=== PATIENT | female | born 1940 | race Caucasian/White ===

== ENCOUNTER → 2016-09-27 | Outpatient (CLI) | payer OTHER ==
[~2016-09-27] MED LIST: ALBUTEROL MDI; ASPI-496 PO; ATOR10TA PO; DIAZ5TAB PO; HYDR25TA6 PO
== END | disposition home or self-care (01) ==
LOC: WOUND 12:39
PROVIDERS: ATTEND Surgery
DX: T81.31XD Disruption of external operation (surgical) wound, not elsewhere classified, subsequent encounter (principal); J45.909 Unspecified asthma, uncomplicated; I10 Essential (primary) hypertension; Z90.710 Acquired absence of both cervix and uterus; Y83.8 Other surgical procedures as the cause of abnormal reaction of the patient, or of later complication, without mention of misadventure at the time of the procedure
CPT/HCPCS: G0463; WOU0463

== ENCOUNTER → 2016-10-06 | Outpatient (CLI) | payer OTHER ==
[~2016-10-06] MED LIST changes: +OMNIPAQUE 350 MG/ML, 100ML BOTTLE ONE
== END | disposition home or self-care (01) ==
LOC: CFH 10:54
PROVIDERS: ATTEND Surgery
DX: K80.20 Calculus of gallbladder without cholecystitis without obstruction (principal); K76.0 Fatty (change of) liver, not elsewhere classified; I70.0 Atherosclerosis of aorta; K57.30 Diverticulosis of large intestine without perforation or abscess without bleeding; J98.4 Other disorders of lung; Z90.710 Acquired absence of both cervix and uterus
CPT/HCPCS: 74177; 82565; Q9967

== ENCOUNTER → 2016-10-11 | Outpatient (CLI) | payer OTHER ==
[~2016-10-11] MED LIST changes: -OMNIPAQUE 350 MG/ML, 100ML BOTTLE ONE
== END | disposition home or self-care (01) ==
LOC: WOUND 09:45
PROVIDERS: ATTEND Physician Assistant
DX: T81.31XD Disruption of external operation (surgical) wound, not elsewhere classified, subsequent encounter (principal); I10 Essential (primary) hypertension; J45.909 Unspecified asthma, uncomplicated; Z90.710 Acquired absence of both cervix and uterus; Y83.8 Other surgical procedures as the cause of abnormal reaction of the patient, or of later complication, without mention of misadventure at the time of the procedure
CPT/HCPCS: 17250

== ENCOUNTER → 2016-10-20 | Outpatient (CLI) | payer OTHER | END | disposition home or self-care (01) | LOC: WOUND 10:00 | PROVIDERS: ATTEND Internal Medicine | DX: T81.31XD Disruption of external operation (surgical) wound, not elsewhere classified, subsequent encounter (principal); I10 Essential (primary) hypertension; J45.909 Unspecified asthma, uncomplicated; Z90.710 Acquired absence of both cervix and uterus; Y83.8 Other surgical procedures as the cause of abnormal reaction of the patient, or of later complication, without mention of misadventure at the time of the procedure | CPT/HCPCS: 97597 ==

== ENCOUNTER → 2016-11-01 | Outpatient (CLI) | payer OTHER | END | disposition home or self-care (01) | LOC: WOUND 13:02 | PROVIDERS: ATTEND Surgery | DX: T81.31XD Disruption of external operation (surgical) wound, not elsewhere classified, subsequent encounter (principal); I10 Essential (primary) hypertension; J45.909 Unspecified asthma, uncomplicated; Z90.710 Acquired absence of both cervix and uterus; Y83.8 Other surgical procedures as the cause of abnormal reaction of the patient, or of later complication, without mention of misadventure at the time of the procedure | CPT/HCPCS: G0463; WOU0463 ==

== ENCOUNTER → 2016-11-15 | Outpatient (CLI) | payer OTHER | END | disposition home or self-care (01) | LOC: WOUND 11:02 | PROVIDERS: ATTEND Physician Assistant | DX: T81.31XD Disruption of external operation (surgical) wound, not elsewhere classified, subsequent encounter (principal); I10 Essential (primary) hypertension; J45.909 Unspecified asthma, uncomplicated; Z90.710 Acquired absence of both cervix and uterus; Z85.828 Personal history of other malignant neoplasm of skin; Y83.8 Other surgical procedures as the cause of abnormal reaction of the patient, or of later complication, without mention of misadventure at the time of the procedure | CPT/HCPCS: G0463; WOU0463 ==

== ENCOUNTER → 2016-11-30 | Outpatient (CLI) | payer OTHER | END | disposition home or self-care (01) | LOC: WOUND 10:06 | PROVIDERS: ATTEND Internal Medicine | DX: T81.31XD Disruption of external operation (surgical) wound, not elsewhere classified, subsequent encounter (principal); I10 Essential (primary) hypertension; J45.909 Unspecified asthma, uncomplicated; Z85.828 Personal history of other malignant neoplasm of skin; Z90.710 Acquired absence of both cervix and uterus; Y83.8 Other surgical procedures as the cause of abnormal reaction of the patient, or of later complication, without mention of misadventure at the time of the procedure | CPT/HCPCS: G0463; WOU0463 ==

== ENCOUNTER → 2017-09-14 | Outpatient (CLI) | payer MEDICARE | END | disposition home or self-care (01) | LOC: CFH 13:14 | PROVIDERS: ATTEND Internal Medicine Geriatric Medicine | DX: K80.20 Calculus of gallbladder without cholecystitis without obstruction (principal); K83.8 Other specified diseases of biliary tract | CPT/HCPCS: 74181 ==

== ENCOUNTER 2017-10-11 10:03 | Day surgery (SDC) | payer MEDICARE ==
[~2017-10-11] VITALS: Ht 162.6 cm; Wt 80.4 kg
[2017-10-11] MEDS ORDERED: LACTATED RINGERS 1,000 ML IV SCH (11:16)
[2017-10-11] MEDS ORDERED: ROCURONIUM 10MG/ML,5ML ONE (11:17)
[2017-10-11] MEDS ORDERED: FENTANYL PF 100 MCG/2ML ONE (11:17)
[2017-10-11] MEDS ORDERED: AMLO5TAB2 PO (11:17)
[2017-10-11] MEDS ORDERED: PROPOFOL 10 MG/ML, 20ML ONE (11:18)
[2017-10-11] MEDS ORDERED: SUCCINYLCHOLINE 20 MG/ML, 10ML ONE (11:18)
[2017-10-11 11:20] VITALS: BP 155/75
[2017-10-11] MEDS ORDERED: PHENYLEPHRINE 10 MG/ML ONE (12:24)
[2017-10-11] MEDS ORDERED: DEXAMETHASONE 4 MG/ML, 1ML ONE ×2 (12:40)
[2017-10-11] MEDS ORDERED: ONDANSETRON 2MG/ML, 2ML ONE (12:41)
[2017-10-11] MEDS ORDERED: INDOMETHACIN 50 MG SUPP.RECT ONE (13:20)
[2017-10-11] MEDS ORDERED: ONDANSETRON ODT 8 MG ONE (15:10)
[2017-10-11] MEDS ORDERED: ONDANSETRON ODT 8 MG PO ONE (15:30)
== END 2017-10-11 15:15 | disposition home or self-care (01) ==
LOC: OUT 10:03
PROVIDERS: ATTEND Internal Medicine
DX: K80.50 Calculus of bile duct without cholangitis or cholecystitis without obstruction (principal); K31.89 Other diseases of stomach and duodenum; Z86.718 Personal history of other venous thrombosis and embolism; Z79.82 Long term (current) use of aspirin
CPT/HCPCS: 43262; 43264; 74328; 93005; J0330; J1100; J2370; J2405; J2704; J3010; J7120; Q0162

== ENCOUNTER 2017-11-11 05:33 | Day surgery (SDC) | payer MEDICARE ==
[~2017-11-11] VITALS: Ht 162.6 cm; Wt 80.5 kg
[~2017-11-11 05:33] MED LIST changes: +AMLO5TAB2 PO
[2017-11-11] MEDS ORDERED: LACTATED RINGERS 1,000 ML IV SCH ×2 (06:13→09:06)
[2017-11-11 06:46] VITALS: BP 147/81
[2017-11-11] MEDS ORDERED: BUPIVACAINE/PF-EPI 0.5% 1:200K ONE (07:32)
[2017-11-11] MEDS ORDERED: ROCURONIUM 10MG/ML,5ML ONE (07:38)
[2017-11-11] MEDS ORDERED: PROPOFOL 10 MG/ML, 20ML ONE (07:38)
[2017-11-11] MEDS ORDERED: DEXAMETHASONE 4 MG/ML, 1ML ONE (07:38)
[2017-11-11] MEDS ORDERED: CEFOTETAN PMX 2GM/50ML 50 ML ONE (07:38)
[2017-11-11] MEDS ORDERED: ACETAMINOPHEN 325 MG TABLET PO PRN (08:00)
[2017-11-11] MEDS ORDERED: PROMETHAZINE 25 MG/ML, 1ML IV PRN (08:00)
[2017-11-11] MEDS ORDERED: HYDROmorphone 1 MG/ML, 1ML IV PRN (08:00)
[2017-11-11] MEDS ORDERED: METOPROLOL 1 MG/ML, 5ML IV PRN (08:00)
[2017-11-11] MEDS ORDERED: ONDANSETRON 2MG/ML, 2ML IV PRN (08:00)
[2017-11-11] MEDS ORDERED: EPHEDRINE 50 MG/ML, 1ML IVPush PRN (08:00)
[2017-11-11] MEDS ORDERED: ALBUTEROL SULFATE 2.5 MG/3 ML NPPB PRN (08:00)
[2017-11-11] MEDS ORDERED: FENTANYL PF 100 MCG/2ML IV PRN (08:00)
[2017-11-11] MEDS ORDERED: hydrALAzine 20 MG/ML, 1ML IV PRN (08:00)
[2017-11-11] MEDS ORDERED: OXYcodone 5 MG/5 ML ORAL.SOL UDC PO PRN (08:00)
[2017-11-11] MEDS ORDERED: LABETALOL 5MG/ML, 20ML IV PRN (08:00)
[2017-11-11] MEDS ORDERED: FENTANYL PF 250 MCG/5ML ONE (08:19)
[2017-11-11] MEDS ORDERED: NEOSTIGMINE 1 MG/ML, 10ML ONE (08:40)
[2017-11-11] MEDS ORDERED: GLYCOPYRROLATE 0.4 MG/2 ML, 2ML ONE (08:40)
[2017-11-11] MEDS ORDERED: SUCCINYLCHOLINE 20 MG/ML, 10ML ONE (08:41)
[2017-11-11] MEDS ORDERED: ACETAMINOPHEN 650 MG/20.3 ML UDC ONE (09:18)
[2017-11-11] MEDS ORDERED: KETOROLAC 30 MG/1 ML ONE (09:18)
[2017-11-11] MEDS ORDERED: OXYcodone 5 MG/5 ML ORAL.SOL UDC ONE (09:19)
[2017-11-11] MEDS ORDERED: HYDROcodone/APAP 5/325 TABLET PO PRN (09:30)
[2017-11-11] MEDS ORDERED: ONDANSETRON 2MG/ML, 2ML IVPush PRN (09:30)
[2017-11-11] MEDS ORDERED: morphine SULFATE 10 MG/ML, 1ML IVPush PRN (09:30)
[2017-11-11] MEDS ORDERED: KETOROLAC 30 MG/1 ML IVPush SCH (09:30)
[2017-11-11] MEDS ORDERED: ONDANSETRON 2MG/ML, 2ML ONE (11:19)
== END 2017-11-11 11:38 | disposition home or self-care (01) ==
LOC: OUT 05:33
PROVIDERS: ATTEND Thoracic Surgery (Cardiothoracic Vascular Surgery)
DX: K80.10 Calculus of gallbladder with chronic cholecystitis without obstruction (principal); E78.00 Pure hypercholesterolemia, unspecified; J45.909 Unspecified asthma, uncomplicated; I10 Essential (primary) hypertension; Z98.890 Other specified postprocedural states; Z79.82 Long term (current) use of aspirin; Z86.718 Personal history of other venous thrombosis and embolism; Z87.19 Personal history of other diseases of the digestive system
CPT/HCPCS: 47562; 88304; J0330; J1100; J1885; J2405; J2704; J2710; J3010; J7120; S0074

== ENCOUNTER → 2018-02-23 | Outpatient (CLI) | payer MEDICARE ==
[~2018-02-23] MED LIST changes: -AMLO5TAB2 PO; +AMLO5TAB7 PO; +OMNIPAQUE 350 MG/ML, 100ML BOTTLE ONE
== END | disposition home or self-care (01) ==
LOC: CFH 09:12
PROVIDERS: ATTEND Thoracic Surgery (Cardiothoracic Vascular Surgery)
DX: L08.9 Local infection of the skin and subcutaneous tissue, unspecified (principal); T14.8XXA Other injury of unspecified body region, initial encounter
CPT/HCPCS: 74177; Q9967

== ENCOUNTER 2018-03-08 13:40 | Observation (INO) | payer MEDICARE ==
[~2018-03-08] VITALS: Ht 162.6 cm; Wt 84.2 kg
[~2018-03-08 13:40] MED LIST changes: +AMLO-150 PO; -AMLO5TAB7 PO; -OMNIPAQUE 350 MG/ML, 100ML BOTTLE ONE
[2018-03-08] MEDS ORDERED: LACTATED RINGERS 1,000 ML IV SCH (14:21)
[2018-03-08] MEDS ORDERED: vitamin b6 (14:28)
[2018-03-08] MEDS ORDERED: [UNRECOGNIZED DRUG - OTHER] (14:28)
[2018-03-08] MEDS ORDERED: vitamin c (14:28)
[2018-03-08] MEDS ORDERED: vitamin b3 (14:28)
[2018-03-08] MEDS ORDERED: B COMPLEX (14:28)
[2018-03-08] MEDS ORDERED: multivitamin (14:28)
[2018-03-08] MEDS ORDERED: melatonin (14:28)
[2018-03-08 14:29] VITALS: BP 141/83
[2018-03-08] MEDS ORDERED: GABAPENTIN 300 MG CAPSULE PO ONE (14:30)
[2018-03-08] MEDS ORDERED: ACETAMINOPHEN 500 MG TABLET PO ONE (14:30)
[2018-03-08] MEDS ORDERED: MIDAZOLAM 1 MG/ML, 2ML ONE (15:50)
[2018-03-08] MEDS ORDERED: FENTANYL PF 250 MCG/5ML ONE (15:50)
[2018-03-08] MEDS ORDERED: PROPOFOL 10 MG/ML, 20ML ONE (16:05)
[2018-03-08] MEDS ORDERED: ONDANSETRON 2MG/ML, 2ML ONE (16:05)
[2018-03-08] MEDS ORDERED: CEFAZOLIN 1,000 MG ONE (16:05)
[2018-03-08] MEDS ORDERED: NEOSTIGMINE 1 MG/ML, 10ML ONE (16:05)
[2018-03-08] MEDS ORDERED: DEXAMETHASONE 4 MG/ML, 1ML ONE (16:05)
[2018-03-08] MEDS ORDERED: ROCURONIUM 10 MG/ML,10ML ONE (16:54)
[2018-03-08] MEDS ORDERED: GLYCOPYRROLATE 0.2MG/1ML, 5ML ONE (16:54)
[2018-03-08] MEDS ORDERED: PHENYLEPHRINE 10 MG/ML ONE (16:54)
[2018-03-08] MEDS ORDERED: LABETALOL 5MG/ML, 20ML IV PRN (17:00)
[2018-03-08] MEDS ORDERED: PROMETHAZINE 25 MG/ML, 1ML IV PRN (17:00)
[2018-03-08] MEDS ORDERED: HYDROmorphone 1 MG/ML, 1ML IV PRN (17:00)
[2018-03-08] MEDS ORDERED: ONDANSETRON ODT 8 MG PO PRN (17:00)
[2018-03-08] MEDS ORDERED: PROMETHAZINE 12.5 MG SUPP PR PRN ×2 (17:00→18:00)
[2018-03-08] MEDS ORDERED: PROMETHAZINE 25 MG SUPP PR PRN (17:00)
[2018-03-08] MEDS ORDERED: FENTANYL PF 100 MCG/2ML IV PRN (17:00)
[2018-03-08] MEDS ORDERED: OXYcodone 5 MG/5 ML ORAL.SOL UDC PO PRN (17:00)
[2018-03-08] MEDS ORDERED: PROMETHAZINE 25 MG/ML, 1ML IM PRN ×3 (17:00→18:00)
[2018-03-08] MEDS ORDERED: MORPHINE SULFATE 4 MG/ML, 1ML IVPush PRN (17:00)
[2018-03-08] MEDS ORDERED: ONDANSETRON 2MG/ML, 2ML IV PRN (17:00)
[2018-03-08] MEDS ORDERED: MEPERIDINE/PF 25MG/0.5ML IVPush PRN (17:00)
[2018-03-08] MEDS ORDERED: hydrALAzine 20 MG/ML, 1ML IV PRN ×2 (17:00→18:00)
[2018-03-08] MEDS ORDERED: ACETAMINOPHEN 650 MG/20.3 ML UDC PO PRN (18:00)
[2018-03-08] MEDS ORDERED: ENALAPRILAT 1.25 MG/ML, 2ML IV PRN (18:00)
[2018-03-08] MEDS ORDERED: LORazepam 1MG TABLET PO PRN (18:00)
[2018-03-08] MEDS ORDERED: ONDANSETRON 2MG/ML, 2ML IVPush PRN (18:00)
[2018-03-08] MEDS ORDERED: ACETAMINOPHEN 650 MG SUPP PR PRN (18:00)
[2018-03-08] MEDS ORDERED: HYDROcodone/APAP 5/325 TABLET PO PRN (18:00)
[2018-03-08] MEDS ORDERED: LORazepam 2 MG/ML, 1ML IV PRN (18:00)
[2018-03-08] MEDS ORDERED: morphine SULFATE 10 MG/ML, 1ML IV PRN (18:00)
[2018-03-08] MEDS ORDERED: DIPHENHYDRAMINE 25 MG CAPSULE PO PRN (18:00)
[2018-03-08] MEDS ORDERED: DIPHENHYDRAMINE 50 MG/ML, 1ML IV PRN (18:00)
[2018-03-08] MEDS ORDERED: CEFAZOLIN PMX 2GM/50ML 50 ML IVPB SCH (19:00)
[2018-03-08] MEDS ORDERED: ATORVASTATIN 10 MG TABLET PO SCH (21:00)
[2018-03-08] MEDS: LACTATED RINGERS 1,000 ML IV SCH (21:14)
[2018-03-08] MEDS: FAMOTIDINE 20 MG/2 ML IV SCH (21:14)
[2018-03-08] MEDS: FAMOTIDINE 20 MG TABLET PO SCH (21:14)
[2018-03-08 21:59] VITALS: BP 110/67
[2018-03-09] MEDS ORDERED: CEFAZOLIN 2,000 MG in SODIUM CHLORIDE 0.9% 50 ML IVPB SCH (01:00)
[2018-03-09] MEDS: LACTATED RINGERS 1,000 ML IV SCH (01:36)
[2018-03-09 08:04] VITALS: BP 120/68
[2018-03-09] MEDS: FAMOTIDINE 20 MG/2 ML IV SCH (09:00)
[2018-03-09] MEDS ORDERED: AMLODIPINE 5 MG TABLET PO SCH (09:00)
[2018-03-09] MEDS: FAMOTIDINE 20 MG TABLET PO SCH (09:01)
[2018-03-09 09:52] VITALS: BP 112/56
[2018-03-09] MEDS ORDERED: HYDR-3240 PO (11:19)
[2018-03-09] MEDS ORDERED: AMOX1TAB64 PO (11:20)
== END 2018-03-09 11:29 | disposition home or self-care (01) ==
LOC: OR 13:40 → ORIP 17:36 → 4NOR 18:43 → DCLOUNGE 03-09 11:20
PROVIDERS: ADMIT Thoracic Surgery (Cardiothoracic Vascular Surgery); ATTEND Thoracic Surgery (Cardiothoracic Vascular Surgery)
DX: T81.49XA Infection following a procedure, other surgical site, initial encounter (principal); E78.00 Pure hypercholesterolemia, unspecified; I10 Essential (primary) hypertension; Y99.8 Other external cause status
CPT/HCPCS: 11005; 11008; 87070; 87075; 87077; 87186; 87205; 93005; 96365; 96366; G0378; J0690; J1100; J2250; J2370; J2405; J2704; J2710; J3010; J3490; J7120

== ENCOUNTER → 2018-03-10 | Outpatient (CLI) | payer MEDICARE ==
[~2018-03-10] MED LIST changes: +AMOX1TAB64 PO; +B COMPLEX; +HYDR-3240 PO; +[UNRECOGNIZED DRUG - OTHER]; +melatonin; +multivitamin; +vitamin b3; +vitamin b6; +vitamin c
== END | disposition home or self-care (01) ==
LOC: WOUND 14:04
PROVIDERS: ATTEND Family Medicine
DX: T81.31XD Disruption of external operation (surgical) wound, not elsewhere classified, subsequent encounter (principal); I10 Essential (primary) hypertension; J45.909 Unspecified asthma, uncomplicated; E78.5 Hyperlipidemia, unspecified; E78.00 Pure hypercholesterolemia, unspecified; Z90.710 Acquired absence of both cervix and uterus; Y83.8 Other surgical procedures as the cause of abnormal reaction of the patient, or of later complication, without mention of misadventure at the time of the procedure
CPT/HCPCS: 11042; 97605; G0463

== ENCOUNTER → 2018-03-13 | Outpatient (CLI) | payer MEDICARE | END | disposition home or self-care (01) | LOC: WOUND 12:53 | PROVIDERS: ATTEND Internal Medicine | DX: T81.31XD Disruption of external operation (surgical) wound, not elsewhere classified, subsequent encounter (principal); I10 Essential (primary) hypertension; J45.909 Unspecified asthma, uncomplicated; E78.00 Pure hypercholesterolemia, unspecified; E78.5 Hyperlipidemia, unspecified; Z90.710 Acquired absence of both cervix and uterus; Y83.8 Other surgical procedures as the cause of abnormal reaction of the patient, or of later complication, without mention of misadventure at the time of the procedure | CPT/HCPCS: 97605 ==

== ENCOUNTER → 2018-03-15 | Outpatient (CLI) | payer MEDICARE | END | disposition home or self-care (01) | LOC: WOUND 12:56 | PROVIDERS: ATTEND Internal Medicine Cardiovascular Disease | DX: T81.31XS Disruption of external operation (surgical) wound, not elsewhere classified, sequela (principal); I10 Essential (primary) hypertension; J45.909 Unspecified asthma, uncomplicated; E78.5 Hyperlipidemia, unspecified; E78.00 Pure hypercholesterolemia, unspecified; Z90.710 Acquired absence of both cervix and uterus; Y83.8 Other surgical procedures as the cause of abnormal reaction of the patient, or of later complication, without mention of misadventure at the time of the procedure | CPT/HCPCS: 97605 ==

== ENCOUNTER → 2018-03-17 | Outpatient (CLI) | payer MEDICARE | END | disposition home or self-care (01) | LOC: WOUND 10:50 | PROVIDERS: ATTEND Family Medicine | DX: T81.31XD Disruption of external operation (surgical) wound, not elsewhere classified, subsequent encounter (principal); I10 Essential (primary) hypertension; J45.909 Unspecified asthma, uncomplicated; E78.5 Hyperlipidemia, unspecified; E78.00 Pure hypercholesterolemia, unspecified; Z90.710 Acquired absence of both cervix and uterus; Y83.8 Other surgical procedures as the cause of abnormal reaction of the patient, or of later complication, without mention of misadventure at the time of the procedure | CPT/HCPCS: 97597 ==

== ENCOUNTER → 2018-03-20 | Outpatient (CLI) | payer MEDICARE | END | disposition home or self-care (01) | LOC: WOUND 14:00 | PROVIDERS: ATTEND Internal Medicine | DX: T81.31XD Disruption of external operation (surgical) wound, not elsewhere classified, subsequent encounter (principal); I10 Essential (primary) hypertension; J45.909 Unspecified asthma, uncomplicated; E78.5 Hyperlipidemia, unspecified; E78.00 Pure hypercholesterolemia, unspecified; Z90.710 Acquired absence of both cervix and uterus; Y83.8 Other surgical procedures as the cause of abnormal reaction of the patient, or of later complication, without mention of misadventure at the time of the procedure | CPT/HCPCS: G0463 ==

== ENCOUNTER → 2018-03-29 | Outpatient (CLI) | payer MEDICARE | END | disposition home or self-care (01) | LOC: WOUND 11:00 | PROVIDERS: ATTEND Internal Medicine | DX: T81.31XS Disruption of external operation (surgical) wound, not elsewhere classified, sequela (principal); I10 Essential (primary) hypertension; J45.909 Unspecified asthma, uncomplicated; E78.5 Hyperlipidemia, unspecified; E78.00 Pure hypercholesterolemia, unspecified; Z90.710 Acquired absence of both cervix and uterus; Y83.8 Other surgical procedures as the cause of abnormal reaction of the patient, or of later complication, without mention of misadventure at the time of the procedure | CPT/HCPCS: 97597 ==

== ENCOUNTER → 2018-04-12 | Outpatient (CLI) | payer MEDICARE | END | disposition home or self-care (01) | LOC: WOUND 08:17 | PROVIDERS: ATTEND Internal Medicine | DX: T81.31XS Disruption of external operation (surgical) wound, not elsewhere classified, sequela (principal); I10 Essential (primary) hypertension; J45.909 Unspecified asthma, uncomplicated; E78.5 Hyperlipidemia, unspecified; E78.00 Pure hypercholesterolemia, unspecified; Z90.710 Acquired absence of both cervix and uterus; Y83.8 Other surgical procedures as the cause of abnormal reaction of the patient, or of later complication, without mention of misadventure at the time of the procedure | CPT/HCPCS: 97597 ==

== ENCOUNTER → 2018-04-26 | Outpatient (CLI) | payer MEDICARE | END | disposition home or self-care (01) | LOC: WOUND 09:16 | PROVIDERS: ATTEND Internal Medicine | DX: T81.31XD Disruption of external operation (surgical) wound, not elsewhere classified, subsequent encounter (principal); I10 Essential (primary) hypertension; J45.909 Unspecified asthma, uncomplicated; E78.5 Hyperlipidemia, unspecified; E78.00 Pure hypercholesterolemia, unspecified; Z90.710 Acquired absence of both cervix and uterus; Y83.8 Other surgical procedures as the cause of abnormal reaction of the patient, or of later complication, without mention of misadventure at the time of the procedure | CPT/HCPCS: G0463 ==

== ENCOUNTER → 2020-06-16 | Outpatient (CLI) | payer MEDICARE ==
[~2020-06-16] MED LIST changes: +HYDR-1067 PO; -HYDR-3240 PO
== END | disposition home or self-care (01) ==
LOC: CARD 09:19
PROVIDERS: ATTEND Nurse Practitioner
DX: I08.3 Combined rheumatic disorders of mitral, aortic and tricuspid valves (principal); R01.1 Cardiac murmur, unspecified
CPT/HCPCS: 93306

== ENCOUNTER → 2020-08-25 | Outpatient (CLI) | payer MEDICARE ==
[~2020-08-25] MED LIST changes: -HYDR-1067 PO; +HYDR-2214 PO; +REGADENOSON 0.4 MG/5 ML SYRINGE ONE
== END | disposition home or self-care (01) ==
LOC: CFH 07:39
PROVIDERS: ATTEND Nurse Practitioner
DX: R06.02 Shortness of breath (principal)
CPT/HCPCS: 78452; 93017; A9502; J2785

== ENCOUNTER → 2020-09-15 | Outpatient (CLI) | payer MEDICARE ==
[~2020-09-15] MED LIST changes: +OMNIPAQUE 350 MG/ML, 100ML BOTTLE ONE; -REGADENOSON 0.4 MG/5 ML SYRINGE ONE
== END | disposition home or self-care (01) ==
LOC: CFH 11:21
PROVIDERS: ATTEND Nurse Practitioner
DX: K57.30 Diverticulosis of large intestine without perforation or abscess without bleeding (principal); N28.1 Cyst of kidney, acquired; M51.36 Other intervertebral disc degeneration, lumbar region; I70.0 Atherosclerosis of aorta
CPT/HCPCS: 74177; 82565; Q9967

== ENCOUNTER 2020-11-01 14:45 | Emergency (ER) | payer MEDICARE ==
[~2020-11-01] VITALS: Ht 162.6 cm; Wt 85.8 kg
[~2020-11-01 14:45] MED LIST changes: -OMNIPAQUE 350 MG/ML, 100ML BOTTLE ONE
--- NOTE | 2020-11-01 15:04 | NUR ---
WHARF HAND: PT WC'D TO ROOM FROM LOBBY.
--- NOTE | 2020-11-01 15:08 | NUR ---
PT TO ROOM FROM LOBBY, CONNECTED TO MONITORS. CALL LIGHT WTIHIN REACH. FAMILY AT BS. PT C/O L-LEG PAIN, SWELLING, ERYTHEMA, WARM TO TOUCH. PT HX OF DVT
[2020-11-01 15:17] LABS: BASOPHILS % (AUTO) 1 % (0-1); EOSINOPHILS % (AUTO) 2 % (1-7); LYMPHOCYTES % (AUTO) 22 % (22-44); MEAN CORPUSCULAR HEMOGLOBIN 32.8 pg (27.0-34.8); MEAN CORPUSCULAR HGB CONC 34.3 g/dL (32.4-35.8); MONOCYTES % (AUTO) 9 % (2-9); NEUTROPHILS % (AUTO) 66 % (42-75); PLATELET COUNT 213 x10^3/uL (130-400); RED BLOOD COUNT 4.69 x10^6/uL (3.82-5.3); RED CELL DISTRIBUTION WIDTH 13.9 % (9.6-15.2)
--- NOTE | 2020-11-01 15:20 | NUR ---
ERP AT BS FOR EVAL
[2020-11-01 15:25] LABS: ANION GAP 2 mmol/L (5-15); CALCIUM 9.3 mg/dL (8.5-10.1); CHLORIDE 104 mmol/L (98-107); CREATININE 0.89 mg/dL (0.55-1.02)
[2020-11-01 16:10] VITALS: BP 135/65
--- NOTE | 2020-11-01 16:10 | NUR ---
PT RESTING ON OwlTing ???, WATCHING TV WITH SPOUSE. NADN/VSS. CALL LIGHT WITHIN REACH. NO NEEDS AT THIS TIME. AWAITING US.
[2020-11-01] MEDS ORDERED: CEFTRIAXONE 1,000 MG ONE (17:25)
[2020-11-01] MEDS ORDERED: CEFTRIAXONE 1,000 MG IM ONE (17:30)
--- NOTE | 2020-11-01 17:34 | NUR ---
Patient given discharge instructions and RX, they have confirmed that they understand the instructions. Patient ambulatory with steady gait.
[2020-11-03] MEDS ORDERED: MULTIVITAMIN PO (18:14)
[2020-11-03] MEDS ORDERED: TURMERIC PO (18:14)
[2020-11-03] MEDS ORDERED: ASCO100018 PO (18:14)
[2020-11-03] MEDS ORDERED: VITAMIN B-12 PO (18:14)
[2020-11-03] MEDS ORDERED: TRAZ-96 PO (19:53)
[2020-11-05] MEDS ORDERED: PRED10TA PO (17:44)
== END 2020-11-01 17:35 | disposition home or self-care (01) ==
LOC: ED 15:41
DX: L03.116 Cellulitis of left lower limb (principal); I10 Essential (primary) hypertension; Z86.718 Personal history of other venous thrombosis and embolism
CPT/HCPCS: 36415; 80048; 85025; 93971; 96372; 99284; J0696